=== PATIENT | female | born 1965 | race Caucasian/White ===

== ENCOUNTER 2016-12-13 11:03 | Inpatient (IN) | payer BC, OTHER ==
[~2016-12-13] VITALS: Ht 177.8 cm; Wt 91.4 kg
--- NOTE | 2016-12-13 12:28 | DIAGNOSTIC IMAGING REPORT ---
MAXILLOFACIAL CT WITHOUT CONTRAST CLINICAL HISTORY: Fell, trauma to face COMPARISON STUDY: None. TECHNIQUE: A maxillofacial CT was performed without IV contrast. Coronal and sagittal reformats were viewed. FINDINGS: No acute facial fracture is identified. Alignment of the temporomandibular joints is anatomic. Orbits are unremarkable. Globes are intact. Mastoid air cells are clear. Cervical spine and head CT's will be reported separately. There is moderate rightward deviation of the nasal septum. This is chronic. IMPRESSION: No acute facial fracture. Electronically signed by: Dg Tapia M.D. 12/13/2016 12:26 PM Dictated Date/Time: 12/13/2016 12:21 PM
--- NOTE | 2016-12-13 12:28 | DIAGNOSTIC IMAGING REPORT ---
HEAD CT NONCONTRAST CT DOSE: 638.56 mGycm HISTORY: Fell, trauma to face TECHNIQUE: Multiaxial CT images of the head were performed without the use of intravenous contrast. Automated exposure control was utilized for this study. Comparison: None. Findings: The paranasal sinuses and mastoid air cells are clear. The calvarium and skull base are intact. The ventricles and sulci are within normal limits. There is no mass, hematoma, midline shift. Small wedge-shaped hypodense focus within the left frontal lobe. This is consistent with a subacute to chronic infarct. Impression: No acute intracranial abnormality. Small subacute to chronic infarct within the left frontal lobe. Electronically signed by: Jayesh Erickson M.D. 12/13/2016 12:26 PM Dictated Date/Time: 12/13/2016 12:13 PM
--- NOTE | 2016-12-13 12:32 | DIAGNOSTIC IMAGING REPORT ---
CERVICAL SPINE CT CT DOSE: 490.45 mGycm HISTORY: Neck pain. Fell, trauma to face TECHNIQUE: Multiaxial CT images of the cervical spine were performed and reformatted in the sagittal and coronal plane without the use of contrast. COMPARISON: None. FINDINGS: No fractures. Prevertebral soft tissues and the C1-C2 interval are intact. No pneumothorax. Mild levoscoliosis. Moderate degenerative disease at C5-C6 and C6-C7. 1 mm of anterolisthesis of C4 and C5 which is likely due to long-standing degenerative change. IMPRESSION: No fractures within the cervical spine. Electronically signed by: Jayesh Erickson M.D. 12/13/2016 12:30 PM Dictated Date/Time: 12/13/2016 12:27 PM
[2016-12-13 14:08] LABS: PROTHROMBIN TIME (PATIENT) 10.4 SECONDS (9.0-12.0)
[2016-12-13] MEDS ORDERED: GADAVIST IV PRN (15:30)
--- NOTE | 2016-12-13 15:33 | DIAGNOSTIC IMAGING REPORT ---
MRI OF THE BRAIN COMBO CLINICAL HISTORY: Headache. Abnormal CT scan. COMPARISON STUDY: CT of the brain dated 12/13/2016. MRI of the brain dated 02/25/2007. TECHNIQUE: MRI of the brain was performed utilizing various T1 and T2-weighted sequences in the axial, sagittal, and coronal planes. Contrast-enhanced sequences were acquired following the administration of 9 cc of Gadavist. FINDINGS: Brain parenchyma: There is a small focus of left frontal encephalomalacia consistent with remote infarct. There is no hemorrhage or mass effect. There is no restricted diffusion to suggest acute ischemia. No enhancing mass lesion is identified on the postcontrast images. Brothers-white matter differentiation is preserved. No extra-axial fluid collection is seen. The cerebellar tonsils are normal in configuration. Ventricles, sulci, and cisterns: Normal in configuration. Pituitary and sella: Unremarkable. Intracranial vasculature: Normal flow voids are maintained at the skull base. Orbits: The bony orbits are grossly intact. Orbital contents are normal in appearance. Sinuses and mastoids: Clear. Calvarium: Unremarkable. Cervical cord: Partially visualized cervical spinal cord is normal in morphology and signal intensity. IMPRESSION: 1. There is no hemorrhage, enhancing mass, or evidence of acute ischemia. 2. A small focus of encephalomalacia is again seen in the left frontal lobe. This corresponds to the CT abnormality and likely represents a remote infarct. A precautionary 3 month follow-up MRI is recommended for reassessment. Electronically signed by: Oswald Mccormick M.D. 12/13/2016 3:31 PM Dictated Date/Time: 12/13/2016 3:25 PM
[2016-12-13 16:41] LABS: BASO % 0.6 %; BASO ABS # 0.07 K/uL (0-0.2); COMPLETE YES; EOS % 1.6 %; HEMATOCRIT 47.6 % (37-47); IG% 0.3 %; LYMPH % 27.3 %; LYMPH ABS # 3.07 K/uL (1.2-3.4); MEAN CELL VOLUME 92.2 fL (80-100); MEAN CORPUSCULAR HEMOGLOBIN 31.8 pg (25-34); MEAN CORPUSCULAR HGB CONC 34.5 g/dl (32-36); MEAN PLATELET VOLUME 10.8 fL (7.4-10.4); MONO % 6.6 %; NEUT % 63.6 %; PLATELET COUNT 240 K/uL (130-400); RED BLOOD COUNT 5.16 M/uL (4.2-5.4); WHITE BLOOD COUNT 11.24 K/uL (4.8-10.8)
[2016-12-13 16:49] LABS: BUN/CREATININE RATIO 11.7 (10-20); CALCIUM 9.7 mg/dl (8.5-10.1); CREATININE 0.82 mg/dl (0.60-1.20)
[2016-12-13 16:51] LABS: POTASSIUM 3.6 mmol/L (3.5-5.1)
[2016-12-13 16:52] LABS: ALB/GLOB RATIO 1.1 (0.9-2)
[2016-12-13] MEDS ORDERED: ONDANSETRON INJ 2 MG/ML 2 ML VIAL IV PRN (17:30)
[2016-12-13] MEDS ORDERED: MAGNESIUM HYDROXIDE SUSP 30 ML UDC PO PRN (17:30)
[2016-12-13] MEDS ORDERED: ALUMINUM/MAGNESIUM/SIMETH (MAALOX MAX) 30 ML UDC PO PRN (17:30)
[2016-12-13] MEDS ORDERED: POLYETHYLENE (MIRALAX) 17 GM PACK PO PRN (17:30)
[2016-12-13] MEDS ORDERED: PHARMACIST DISCHARGE MED REC CONSULT PRN (17:30)
--- NOTE | 2016-12-13 17:37 | History and Physical ---
History & Physical Date & Time of Service: Dec 13, 2016 at 17:35 Chief Complaint: Fall, Neck Pain, Black Eye Primary Care Physician: No Doctor, Assigned History of Present Illness Source: patient Ms. 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 Patient reporting social stressors and has been smoking cigarettes more recently. She states last night she was outside smoking when she went to dispose of the cigarette she leaned forward, felt "fuzzy", and fell to her knees. She continued to fall forward on the cement and obtained an abrasion to the right eye. Patient denies LOC but states that she laid on the ground for a few seconds because she could not lift her head up. She states this happened in the past due to vertigo from her cough located migraines. She describes these episodes as the inability to move in generalized weakness. This episode only lasted a few seconds and she was able to get up. Patient denies any focal neurological deficits. She reports that she chronically has difficulty finding her words however denies slurred speech or worsening of the symptoms. Only current complaint is of right facial pain secondary to trauma with associated intermittent numbness and tingling of the right arm. In the ED, maxillofacial CT and cervical spine CT without evidence of fracture. Head CT shows small subacute versus chronic infarct of the left frontal lobe with MRI confirming a remote infarct. Patient will be admitted to telemetry under observation. Family History Cerebral Aneurysm MOTHER Social History Smoking Status: Current Every Day Smoker (intermittent) Smokeless Tobacco Use: No Alcohol Use: none Drug Use: none Immunizations History of Tetanus Vaccine?: Yes History of Pneumococcal: No History of Hepatitis B Vaccine: No Multi-Drug Resistant Organisms History of MDRO: No Allergies Coded Allergies: No Known Allergies (Verified , 12/13/16) Home Medications No Active Prescriptions or Reported Meds Review of Systems REVIEW OF SYSTEMS: General/Constitutional: Denies fever/chills, fatigue, weakness, weight gain/loss ENT: Facial tenderness of R eye; Denies visual changes, nasal drainage, hearing loss, sore throat, trouble swallowing Cardiovascular: Denies chest pain, palpitations, edema Respiratory: Denies cough, sputum, SOB, wheezing, orthopnea GI: Denies nausea, vomiting, abdominal pain, constipation, diarrhea, melena/ hematochezia : Denies dysuria, frequency, hematuria Musculoskeletal: Denies joint/muscle aches, weakness, swelling Neurologic: + intermittent numbness/tingling R arm; Denies dizziness/ lightheadedness, weakness Psychiatric: Deferred Endocrine: Deferred Hematologic/Lymphatic: Denies bleeding/clotting abnormalities Skin: Denies rash, itch, new skin changes, easy bruising Allergy/Immunologic: Deferred Physical Exam Vital Signs Date Time Temp Pulse Resp B/P Pulse Ox O2 Delivery O2 Flow Rate FiO2 12/13/16 16:34 74 18 115/85 99 Room Air 12/13/16 15:28 64 16 115/64 97 12/13/16 13:42 75 18 118/76 98 Room Air 12/13/16 12:33 69 18 113/72 98 Room Air 12/13/16 11:08 36.4 79 20 132/87 94 Room Air PHYSICAL EXAM:: General Appearance: WDWN in NAD who is A&O x 3; mildly anxious HEENT: Head is normocephalic; ecchymosis and edema of R eye with tenderness; EOMI; PERRLA; Hearing grossly intact; Mucous membranes moist; Pharynx negative for exudate/lesions Neck: Supple; Trachea midline; Neg JVD; Neg lymphadenopathy Heart: RRR with no M/G/R Lungs: CTA in all lung saab bilaterally; Respirations unlabored; Neg accessory muscle use Abdomen: Soft, non-tender, non-distended; Positive BS x 4 quadrants; Neg organomegaly Extremities: Capillary refill < 2 seconds; Neg cyanosis or edema Neurological: Speech clear; Gross motor/sensory function intact; Neg focal neurologic deficits; strength equal bilat 5/5; facial movements symmetrical Psychiatric: Appropriate mood/affect Skin: Normal Color; Warm/Dry; Neg rashes, ecchymosis, lacerations/ulcerations Diagnostics Laboratory Results Results Past 24 Hours Test 12/13/16 13:40 Range/Units White Blood Count 11.24 4.8-10.8 K/uL Red Blood Count 5.16 4.2-5.4 M/uL Hemoglobin 16.4 12.0-16.0 g/dL Hematocrit 47.6 37-47 % Mean Corpuscular Volume 92.2 80-100 fL Mean Corpuscular Hemoglobin 31.8 25-34 pg Mean Corpuscular Hemoglobin Concent 34.5 32-36 g/dl Platelet Count 240 130-400 K/uL Mean Platelet Volume 10.8 7.4-10.4 fL Neutrophils (%) (Auto) 63.6 % Lymphocytes (%) (Auto) 27.3 % Monocytes (%) (Auto) 6.6 % Eosinophils (%) (Auto) 1.6 % Basophils (%) (Auto) 0.6 % Neutrophils # (Auto) 7.15 1.4-6.5 K/uL Lymphocytes # (Auto) 3.07 1.2-3.4 K/uL Monocytes # (Auto) 0.74 0.11-0.59 K/uL Eosinophils # (Auto) 0.18 0-0.5 K/uL Basophils # (Auto) 0.07 0-0.2 K/uL RDW Standard Deviation 42.4 36.4-46.3 fL RDW Coefficient of Variation 12.6 11.5-14.5 % Immature Granulocyte % (Auto) 0.3 % Immature Granulocyte # (Auto) 0.03 0.00-0.02 K/uL Prothrombin Time 10.4 9.0-12.0 SECONDS Prothromb Time International Ratio 1.0 0.9-1.1 Activated Partial Thromboplast Time 25.5 21.0-31.0 SECONDS Partial Thromboplastin Ratio 1.0 Sodium Level 141 136-145 mmol/L Potassium Level 3.6 3.5-5.1 mmol/L Chloride Level 106 98-107 mmol/L Carbon Dioxide Level 27 21-32 mmol/L Anion Gap 8.0 3-11 mmol/L Blood Urea Nitrogen 10 7-18 mg/dl Creatinine 0.82 0.60-1.20 mg/dl Est Creatinine Clear Calc Drug Dose 93.2 ml/min Estimated GFR () 96.0 Estimated GFR (Non- 82.9 BUN/Creatinine Ratio 11.7 10-20 Random Glucose 95 70-99 mg/dl Calcium Level 9.7 8.5-10.1 mg/dl Total Bilirubin 0.6 0.2-1 mg/dl Aspartate Amino Transf (AST/SGOT) 22 15-37 U/L Alanine Aminotransferase (ALT/SGPT) 42 12-78 U/L Alkaline Phosphatase 90 45-117 U/L Total Protein 8.5 6.4-8.2 gm/dl Albumin 4.5 3.4-5.0 gm/dl Globulin 4.0 2.5-4.0 gm/dl Albumin/Globulin Ratio 1.1 0.9-2 [address] HEAD [address] NONCONTRAST CT DOSE: 638.56 mGycm HISTORY: Fell, trauma to face TECHNIQUE: Multiaxial CT images of the head were performed without the use of intravenous contrast. Automated exposure control was utilized for this study. Comparison: None. Findings: The paranasal sinuses and mastoid air cells are clear. The calvarium and skull base are intact. The ventricles and sulci are within normal limits. There is no mass, hematoma, midline shift. Small wedge-shaped hypodense focus within the left frontal lobe. This is consistent with a subacute to chronic infarct. Impression: No acute intracranial abnormality. Small subacute to chronic infarct within the left frontal lobe. 2. BRAIN MRI CLINICAL HISTORY: Headache. Abnormal CT scan. COMPARISON STUDY: CT of the brain dated 12/13/2016. MRI of the brain dated 02/25/2007. TECHNIQUE: MRI of the brain was performed utilizing various T1 and T2-weighted sequences in the axial, sagittal, and coronal planes. Contrast-enhanced sequences were acquired following the administration of 9 cc of Gadavist. FINDINGS: Brain parenchyma: There is a small focus of left frontal encephalomalacia consistent with remote infarct. There is no hemorrhage or mass effect. There is no restricted diffusion to suggest acute ischemia. No enhancing mass lesion is identified on the postcontrast images. Brothers-white matter differentiation is preserved. No extra-axial fluid collection is seen. The cerebellar tonsils are normal in configuration. Ventricles, sulci, and cisterns: Normal in configuration. Pituitary and sella: Unremarkable. Intracranial vasculature: Normal flow voids are maintained at the skull base. Orbits: The bony orbits are grossly intact. Orbital contents are normal in appearance. Sinuses and mastoids: Clear. Calvarium: Unremarkable. Cervical cord: Partially visualized cervical spinal cord is normal in morphology and signal intensity. IMPRESSION: 1. There is no hemorrhage, enhancing mass, or evidence of acute ischemia. 2. A small focus of encephalomalacia is again seen in the left frontal lobe. This corresponds to the CT abnormality and likely represents a remote infarct. A precautionary 3 month follow-up MRI is recommended for reassessment. Impression Assessment and Plan Ms. 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 Head CT/MRI confirms subacute vs chronic CVA of L frontal lobe L Frontal Lobe CVA: Chronic - ASA 81 mg daily - Discussed statin therapy - explained preventative measures - patient reports last lipid panel was normal with like to forego medication therapy at this time -- Does report history of hyperlipidemia that she has been managing with diet and exercise - NIH and neuro checks - Lipid panel in AM - Serial cardiac enzymes - Echo - patient reports "a hole in the heart" as a child - cannot give further details -- Do not have high suspicion of embolic source - Consult neurology - appreciate recommendations Mechanical Fall vs Syncope: - Appears largely mechanical but states she did feel "fuzzy" and had resultant difficulty lifting head off the ground - Pain management - Tylenol PRN, Jones PRN, and Morphine IV PRN Complicated Migraines with Aura: STABLE DVT Prophylaxis: YUE/SCDs Code Status: FULL RESUSCITATION Disposition: Resident of [place] ATTENDING ATTESTATION I have seen and examined patient and agree with assessment and plan as stated above by WINTER Perdue. Patient is a 51 y.o.F with no significant PMHx who presented with a mechanical fall. Patient stated after fall she had heaviness head with difficulty lifting her head. On admission MRI she was found to have findings consistent with remote h/o cerebral infarct. Patient admitted to hospitalist service for further workup. Vitals Reviewed GEN: NAD HEENT: right per orbital ecchymosis CVS- RRR RESP- CTA ABD- NTND Neurologic: Cranial nerves 2-12 grossly intact 5/5 strength in all extremities, no sensory deficits Labs/Imaging- Reviewed Mechanical Fall ? TIA/CVA -Place on stroke protocol/start ASA/patient refuses statin however will check lipid profile in am/ consult neurology/ of neurology aware Level of Care Telemetry Resuscitation Status FULL RESUSCITATION VTE Prophylaxis VTE Risk Assessment Done? Y/N: Yes Risk Level: Moderate Given or contraindicated: T.E.D. Stockings, SCD's Social Service Consult None Apply
[2016-12-13] MEDS ORDERED: MoRPHine SULFATE 2 MG/ML CARP IV PRN (17:45)
[2016-12-13] MEDS ORDERED: IV FLUIDS COMPLETED PRN (18:15)
[2016-12-13] MEDS ORDERED: HYDROCODONE/ACETAMOPHEN 5/325MG TAB ONE (18:19)
--- NOTE | 2016-12-13 19:08 | EMERGENCY ROOM VISIT NOTE ---
History First contact with patient: 11:10 Chief Complaint: FALL Stated Complaint: FALL, NECK PAIN, BLACK EYE History of Present Illness The patient is a 51 year old female who presents to the Emergency Room via private vehicle with complaints of "fall, neck pain, black eye". The patient states that yesterday while attempting to extinguish a cigarette all outside she bent down to extinguish a cigarette and lost her balance and fell forward. She states that she felt as if she had an episode of vertigo, and dizziness. She struck her right orbital region and may have lost consciousness. There was a period of haziness postevent. She is here today concerned because her nose, and right eye region are very painful. The neck is also increasingly painful. Her tetanus is up-to-date. She rates the current pain as a 4/10. Review of Systems A complete 10-point Review of Systems was discussed with the patient, with pertinent positives and negatives listed in the History of Present Illness. All remaining Review of Systems questions can be considered negative unless otherwise specified. Past Medical/Surgical History Medical Problems: (1) Cerebrovascular accident (CVA) Family History Cerebral Aneurysm MOTHER Heart disease, high blood pressure, cancer Social History Smoking Status: Current Every Day Smoker (intermittent) Smokeless Tobacco Use: No Drug Use: none Occupation Status: employed Current/Historical Medications No Active Prescriptions or Reported Meds Allergies Coded Allergies: No Known Allergies (Verified , 12/13/16) Physical Exam Vital Signs Date Time Temp Pulse Resp B/P Pulse Ox O2 Delivery O2 Flow Rate FiO2 12/13/16 18:11 66 18 117/77 99 Room Air 12/13/16 16:34 74 18 115/85 99 Room Air 12/13/16 15:28 64 16 115/64 97 12/13/16 13:42 75 18 118/76 98 Room Air 12/13/16 12:33 69 18 113/72 98 Room Air 12/13/16 11:08 36.4 79 20 132/87 94 Room Air Pain Rating (0-10): 3.0 Physical Exam VITAL SIGNS - Vital signs and nursing notes were reviewed. Patient is afebrile , normotensive, non-tachycardic and saturating well on room air. GENERAL -51-year-old female appearing her stated age who is in no acute distress. Communicates well with provider and answers questions appropriately. SKIN - Without rashes. There is abrasion over the right orbital region. There is ecchymosis formation on the right orbital region. No active bleeding. HEAD - Normocephalic, Atraumatic. No Chaney's Sign or Raccoon's Eyes. No depressed skull fractures palpable. EYES - PERRL with EOMI bilaterally. Without subconjunctival hemorrhage. Palpebral conjunctiva pink and moist with no injection. EARS - No deformities of external structures noted on gross examination bilaterally. No hemotympanum present. No tympanic perforation noted. Handle of malleus, umbo, cone of light, pars tensa/flaccid all easily visualized. NOSE - Midline and without cyanosis. No epistaxis or clear watery discharge noted. Septum midline without deviation. No septal hematoma noted. There is tenderness to palpation overlying the anterior nose. MOUTH/OROPHARYNX - Without perioral cyanosis. Tongue midline with equal elevation of palate bilaterally. No blood noted in the oropharynx. No tonsillar hypertrophy, erythema, or exudates noted. No dental fractures noted. NECK -no tenderness to palpation over the cervical spinous processes. Moderate cervical paraspinal muscle tenderness noted. LUNGS - Chest wall symmetric without accessory muscle use, intercostals retractions, or central cyanosis. No flail chest or depressed fractures noted. No paradoxical chest wall movements noted. CTA B/L. No wheezes, rales, or rhonchi appreciated. CARDIAC - RRR with S1/S2. No murmur, rubs, or gallops appreciated. EXTREMITIES - No gross deformities noted of the extremities. No tenderness to palpation of the extremities. +5/5 strength noted in UE/LE bilaterally. NEUROLOGIC - Cranial nerves II through XII grossly intact. Sensory intact to light touch throughout. Patellar reflexes +2/4. PSYCH - Pt is very pleasant and interacts well with examiner. Medical Decision & Procedures ER Provider Diagnostic Interpretation: CERVICAL SPINE CT CT DOSE: 490.45 mGycm HISTORY: Neck pain. Fell, trauma to face TECHNIQUE: Multiaxial CT images of the cervical spine were performed and reformatted in the sagittal and coronal plane without the use of contrast. COMPARISON: None. FINDINGS: No fractures. Prevertebral soft tissues and the C1-C2 interval are intact. No pneumothorax. Mild levoscoliosis. Moderate degenerative disease at C5-C6 and C6-C7. 1 mm of anterolisthesis of C4 and C5 which is likely due to long-standing degenerative change. IMPRESSION: No fractures within the cervical spine. Electronically signed by: Jayesh Erickson M.D. 12/13/2016 12:30 PM Dictated Date/Time: 12/13/2016 12:[address] CT DOSE: 638.56 mGycm HISTORY: Fell, trauma to face TECHNIQUE: Multiaxial CT images of the head were performed without the use of intravenous contrast. Automated exposure control was utilized for this study. Comparison: None. Findings: The paranasal sinuses and mastoid air cells are clear. The calvarium and skull base are intact. The ventricles and sulci are within normal limits. There is no mass, hematoma, midline shift. Small wedge-shaped hypodense focus within the left frontal lobe. This is consistent with a subacute to chronic infarct. Impression: No acute intracranial abnormality. Small subacute to chronic infarct within the left frontal lobe. Electronically signed by: Jayesh Erickson M.D. 12/13/2016 12:26 PM Dictated Date/Time: 12/13/2016 12:[address] WITHOUT CONTRAST CLINICAL HISTORY: Fell, trauma to face COMPARISON STUDY: None. TECHNIQUE: A maxillofacial CT was performed without IV contrast. Coronal and sagittal reformats were viewed. FINDINGS: No acute facial fracture is identified. Alignment of the temporomandibular joints is anatomic. Orbits are unremarkable. Globes are intact. Mastoid air cells are clear. Cervical spine and head CT's will be reported separately. There is moderate rightward deviation of the nasal septum. This is chronic. IMPRESSION: No acute facial fracture. Electronically signed by: Dg Tapia M.D. 12/13/2016 12:26 PM Dictated Date/Time: 12/13/2016 12:21 PM MRI OF THE BRAIN COMBO CLINICAL HISTORY: Headache. Abnormal CT scan. COMPARISON STUDY: CT of the brain dated 12/13/2016. MRI of the brain dated 02/25/2007. TECHNIQUE: MRI of the brain was performed utilizing various T1 and T2-weighted sequences in the axial, sagittal, and coronal planes. Contrast-enhanced sequences were acquired following the administration of 9 cc of Gadavist. FINDINGS: Brain parenchyma: There is a small focus of left frontal encephalomalacia consistent with remote infarct. There is no hemorrhage or mass effect. There is no restricted diffusion to suggest acute ischemia. No enhancing mass lesion is identified on the postcontrast images. Brothers-white matter differentiation is preserved. No extra-axial fluid collection is seen. The cerebellar tonsils are normal in configuration. Ventricles, sulci, and cisterns: Normal in configuration. Pituitary and sella: Unremarkable. Intracranial vasculature: Normal flow voids are maintained at the skull base. Orbits: The bony orbits are grossly intact. Orbital contents are normal in appearance. Sinuses and mastoids: Clear. Calvarium: Unremarkable. Cervical cord: Partially visualized cervical spinal cord is normal in morphology and signal intensity. IMPRESSION: 1. There is no hemorrhage, enhancing mass, or evidence of acute ischemia. 2. A small focus of encephalomalacia is again seen in the left frontal lobe. This corresponds to the CT abnormality and likely represents a remote infarct. A precautionary 3 month follow-up MRI is recommended for reassessment. Electronically signed by: Oswald Mccormick M.D. 12/13/2016 3:31 PM Dictated Date/Time: 12/13/2016 3:25 PM Laboratory Results 12/13/16 13:40 Red Blood Count 5.16, Mean Corpuscular Volume 92.2, Mean Corpuscular Hemoglobin 31.8, Mean Corpuscular Hemoglobin Concent 34.5, Mean Platelet Volume 10.8, Neutrophils (%) (Auto) 63.6, Lymphocytes (%) (Auto) 27.3, Monocytes (%) (Auto) 6.6, Eosinophils (%) (Auto) 1.6, Basophils (%) (Auto) 0.6, Neutrophils # (Auto) 7.15, Lymphocytes # (Auto) 3.07, Monocytes # (Auto) 0.74, Eosinophils # (Auto) 0.18, Basophils # (Auto) 0.07 12/13/16 13:40 Test 12/13/16 13:40 White Blood Count 11.24 K/uL (4.8-10.8) Red Blood Count 5.16 M/uL (4.2-5.4) Hemoglobin 16.4 g/dL (12.0-16.0) Hematocrit 47.6 % (37-47) Mean Corpuscular Volume 92.2 fL (80-100) Mean Corpuscular Hemoglobin 31.8 pg (25-34) Mean Corpuscular Hemoglobin Concent 34.5 g/dl (32-36) Platelet Count 240 K/uL (130-400) Mean Platelet Volume 10.8 fL (7.4-10.4) Neutrophils (%) (Auto) 63.6 % Lymphocytes (%) (Auto) 27.3 % Monocytes (%) (Auto) 6.6 % Eosinophils (%) (Auto) 1.6 % Basophils (%) (Auto) 0.6 % Neutrophils # (Auto) 7.15 K/uL (1.4-6.5) Lymphocytes # (Auto) 3.07 K/uL (1.2-3.4) Monocytes # (Auto) 0.74 K/uL (0.11-0.59) Eosinophils # (Auto) 0.18 K/uL (0-0.5) Basophils # (Auto) 0.07 K/uL (0-0.2) RDW Standard Deviation 42.4 fL (36.4-46.3) RDW Coefficient of Variation 12.6 % (11.5-14.5) Immature Granulocyte % (Auto) 0.3 % Immature Granulocyte # (Auto) 0.03 K/uL (0.00-0.02) Prothrombin Time 10.4 SECONDS (9.0-12.0) Prothromb Time International Ratio 1.0 (0.9-1.1) Activated Partial Thromboplast Time 25.5 SECONDS (21.0-31.0) Partial Thromboplastin Ratio 1.0 Anion Gap 8.0 mmol/L (3-11) Est Creatinine Clear Calc Drug Dose 93.2 ml/min Estimated GFR () 96.0 Estimated GFR (Non- 82.9 BUN/Creatinine Ratio 11.7 (10-20) Calcium Level 9.7 mg/dl (8.5-10.1) Total Bilirubin 0.6 mg/dl (0.2-1) Aspartate Amino Transf (AST/SGOT) 22 U/L (15-37) Alanine Aminotransferase (ALT/SGPT) 42 U/L (12-78) Alkaline Phosphatase 90 U/L (45-117) Troponin I < 0.015 ng/ml (0-0.045) Total Protein 8.5 gm/dl (6.4-8.2) Albumin 4.5 gm/dl (3.4-5.0) Globulin 4.0 gm/dl (2.5-4.0) Albumin/Globulin Ratio 1.1 (0.9-2) Medications Administered Medications (Trade) Dose Ordered Sig/Irene Route Start Time Stop Time Status Last Admin Dose Admin Acetaminophen/ Hydrocodone Bitart (Alpha 5/325 Tab) 1 tab STK-MED ONCE .ROUTE 12/13/16 18:19 12/13/16 18:20 DC 12/13/16 18:16 1 TAB Medical Decision Patient was seen and evaluated as above. After obtaining a thorough history and physical examination, CT of the head, cervical spine and face were obtained secondary to subjective and objective exam findings. Results as above. There is concern for potential subacute/chronic infarct of the left frontal lobe. I did consult with my attending and subsequently the on-call neurologist, Dr. Shaw. The call was placed at 1:28 PM. He recommended an MRI brain with and without contrast. IV access was initiated, i-STAT was obtained and an MRI was also obtained. This was after providing patient consent. MRI confirms CT findings. Case was discussed with Dr. Hurtado, my attending who shared concern over this age indeterminate stroke, of which the patient was unaware of. I'm concerned that due to the patient's symptoms that she had yesterday this may be recent therefore do believe that inpatient admission is warranted for further evaluation and management. She will receive a neurologic consult here in the hospital. Patient was in agreement with this. Basic lab work was obtained, without any significant abnormality. I did discuss the case again with Dr. Shaw, who agreed to potential consultation of the patient tomorrow morning. Please refer to further documentation regarding the patient's stay. In the evaluation and treatment of this patient, the following differential diagnoses were considered: Concussion, Contrecoup Injury, Brain Tumor, Depression, Encephalitis, Hypothyroidism, Meningitis, CVA, TIA, Migraine, Cluster Headache, facial fracture, Intracranial Abnormality, Intracranial Hemorrhage, Subdural Hematoma, Subarachnoid Hemorrhage, Hydrocephalus. Impression Primary Impression: Fall Additional Impressions: Cerebrovascular accident (CVA) Contusion of multiple sites Departure Information Dispostion Admitted as an inpatient Condition FAIR Prescriptions No Active Prescriptions or Reported Meds Referrals No Doctor, Assigned (PCP) Patient Instructions My [facility] Problem Qualifiers
[2016-12-13 19:51] VITALS: BP 126/85; PULSE 75; TEMP 36.8; O2SAT 94; Ht 177.8 cm; Wt 91.4 kg
[2016-12-13] MEDS: ACETAMINOPHEN 325 MG TAB PO PRN (20:26)
[2016-12-13] MEDS: HYDROCODONE/ACETAMOPHEN 5/325MG TAB PO PRN (23:29)
[2016-12-14] VITALS (9 sets, daily range): BP systolic 93–117; BP diastolic 59–79; PULSE 60–72; TEMP 36.5–37.3; O2SAT 93–97
[2016-12-14] MEDS: HYDROCODONE/ACETAMOPHEN 5/325MG TAB PO PRN ×4 (05:58→21:17)
[2016-12-14 06:23] LABS: ESTIMATED AVERAGE GLUCOSE 105 mg/dl; HA1C FLAG Normal (Normal)
[2016-12-14 06:56] LABS: BASO % 0.6 %; BASO ABS # 0.05 K/uL (0-0.2); COMPLETE YES; EOS % 6.3 %; HEMATOCRIT 40.5 % (37-47); IG% 0.3 %; LYMPH % 29.8 %; LYMPH ABS # 2.56 K/uL (1.2-3.4); MEAN CORPUSCULAR HEMOGLOBIN 32.3 pg (25-34); MEAN CORPUSCULAR HGB CONC 35.1 g/dl (32-36); MEAN PLATELET VOLUME 9.9 fL (7.4-10.4); MONO % 7.9 %; NEUT % 55.1 %; PLATELET COUNT 199 K/uL (130-400); WHITE BLOOD COUNT 8.58 K/uL (4.8-10.8)
[2016-12-14 07:13] LABS: BUN/CREATININE RATIO 16.6 (10-20); CALCIUM 8.9 mg/dl (8.5-10.1); CREATININE 0.79 mg/dl (0.60-1.20); POTASSIUM 3.9 mmol/L (3.5-5.1)
[2016-12-14] MEDS: ASPIRIN 81 MG ECTAB PO SCH (07:59)
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
--- NOTE | 2016-12-14 09:49 | Neurology Consultation ---
Neurology Consultation Date of Consultation: Dec 14, 2016. Attending Physician: Shania Simental MD Primary Care Physician: No Doctor, Assigned Reason for Consultation: Near syncope, old stroke found on MRI History of Present Illness Source: patient, hospital records The patient is a 51-year-old female who was evaluated in the emergency department yesterday after falling face forward while bending over to put out a cigarette the previous night. She indicates that she does not typically smoke. She was alone at the time of the incident although was apparently found lying on the ground with evidence of superficial abrasions around the right orbit and face. The patient recalls that her vision became dark although denies any other warning signs. She was not incontinent and did not bite her tongue. She did sustain some minor bruising of the left knee as well. The patient has never had a similar episode in the past. No history of syncope or seizure disorder. Past medical history notable for episodic migraine and vertigo, but nothing significant recently. She does admit to some chronic social stressors related to her marriage and living abroad for 18 years, in [facility]. 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 I was contacted by a physician's physician assistant who is working in the emergency department yesterday. A CT of the head has suggested a possible chronic to subacute left frontal lobe infarct. A follow-up MRI was recommended and corroborated this finding. I reviewed the images and radiologist's interpretation of these tests. There is a small area of encephalomalacia within the left frontal lobe. The area is wedge-shaped and extends to the cortex and appears to be most consistent with a chronic infarct. No abnormal post contrast enhancement. No evidence of an underlying vascular lesion or neoplasm. Upon further questioning, the patient denies a history of stroke or strokelike episodes. She also denies a history of significant head trauma. A brain MRI was completed at [facility] in 2006. There was no evidence of the recently identified left frontal lobe stroke at that time. Past Medical/Surgical History Medical Problems: (1) Contusion of multiple sites Status: Acute (2) Fall Status: Acute Family History The patient indicates that her mother has a history of blood clots. She denies a family history of epilepsy. Social History Smokeless Tobacco Use: No Alcohol Use: none Drug Use: none Occupation Status: employed Allergies Coded Allergies: No Known Allergies (Verified , 12/13/16) Current Inpatient Medications Current Inpatient Medications Medications (Trade) Dose Ordered Sig/Irene Route Start Time Stop Time Status Last Admin Dose Admin Gadobutrol (Gadavist) 9 mmol UD PRN IV 12/13/16 15:30 12/17/16 15:29 Aspirin (Ecotrin Tab) 81 mg QAM PO 12/14/16 09:00 01/13/17 08:59 12/14/16 07:59 81 MG Miscellaneous Information (Pharmacist Discharge Med Rec Consult) 1 ea UD PRN N/A 12/13/16 17:30 01/12/17 17:29 Acetaminophen (Tylenol Tab) 650 mg Q4H PRN PO 12/13/16 17:30 01/12/17 17:29 12/13/16 20:26 650 MG Al Hydrox/Mg Hydrox/Simethicone (Maalox Max Susp) 15 ml Q4H PRN PO 12/13/16 17:30 01/12/17 17:29 Magnesium Hydroxide (Milk Of Magnesia Susp) 30 ml Q12H PRN PO 12/13/16 17:30 01/12/17 17:29 Ondansetron HCl (Zofran Inj) 4 mg Q6H PRN IV 12/13/16 17:30 01/12/17 17:29 Polyethylene (Miralax Powder Packet) 17 gm DAILY PRN PO 12/13/16 17:30 01/12/17 17:29 Morphine Sulfate (MoRPHine SULFATE INJ) 1 mg Q3H PRN IV 12/13/16 17:45 12/27/16 17:44 Acetaminophen/ Hydrocodone Bitart ([place] 5/325 Tab) 1 tab Q4H PRN PO 12/13/16 17:45 12/27/16 17:44 12/14/16 05:58 1 TAB Miscellaneous (Iv Fluids Completed) 1 ea PRN PRN N/A 12/13/16 18:15 12/13/17 18:14 Review of Systems The patient denies headache, fever, chills, vision changes, hearing changes, chest pain, palpitations, shortness of breath, coughing, wheezing, abdominal pain, diarrhea, nausea, dysuria, incontinence, muscle pain, joint pain, rash, skin lesion or sores, swollen glands, abnormal bruising or bleeding, or significant depression or anxiety A full 10 point review of systems was obtained from this patient and is as described in the history of present illness and otherwise listed above Physical Exam Vital Signs (Past 24 Hrs): Date Time Temp Pulse Resp B/P Pulse Ox O2 Delivery O2 Flow Rate FiO2 12/14/16 08:04 36.7 67 16 106/71 94 12/14/16 04:00 Room Air 12/14/16 03:39 36.5 60 16 110/75 94 Room Air 12/14/16 00:11 37.3 66 18 116/79 95 Room Air 12/14/16 00:01 Room Air 12/13/16 20:00 Room Air 12/13/16 19:51 36.8 75 18 126/85 94 Room Air 12/13/16 18:11 66 18 117/77 99 Room Air 12/13/16 16:34 74 18 115/85 99 Room Air 12/13/16 15:28 64 16 115/64 97 12/13/16 13:42 75 18 118/76 98 Room Air 12/13/16 12:33 69 18 113/72 98 Room Air 12/13/16 11:08 36.4 79 20 132/87 94 Room Air The patient is a well-developed, well-nourished, middle-aged female. There are some abrasions around the right orbit and face with some associated ecchymosis. She is alert and oriented to person place and time. Attention and concentration normal. Recent and remote memory normal. She exhibits a normal spontaneous speech pattern, is able to identify objects, repeat phrases, and repeat text without difficulty. Gen. fund of knowledge and vocabulary normal. Visual saab full to confrontation. Visual acuity normal. Pupils equal round reactive to light and accommodation. Eye movements normal. There is no nystagmus. Facial sensation normal. Facial strength normal. No facial droop. Hearing intact to finger rub bilaterally. Palate elevates to midline. Tongue protrudes to midline. Shoulder shrug strength intact bilaterally. Sensation intact to vibration, temperature, light touch, and proprioception for all 4 limbs. Deep tendon reflexes are 2+ for the upper and lower extremities bilaterally. Plantar responses downgoing bilaterally. There is no dysmetria with finger to nose or heel to pompa bilaterally. No difficulty with rapid alternating movements. Ophthalmoscopic examination reveals normal appearing optic nerves and posterior elements. No papilledema. No hemorrhages. Carotid pulses normal bilaterally, no bruits to auscultation. Musculoskeletal examination reveals normal strength for the arms and legs bilaterally, proximally and distally. There is normal muscle tone. No atrophy. No abnormal movements observed. Gait and station normal. Laboratory Results Past 24 Hours: 12/14/16 06:36 Red Blood Count 4.40, Mean Corpuscular Volume 92.0, Mean Corpuscular Hemoglobin 32.3, Mean Corpuscular Hemoglobin Concent 35.1, Mean Platelet Volume 9.9, Neutrophils (%) (Auto) 55.1, Lymphocytes (%) (Auto) 29.8, Monocytes (%) (Auto) 7.9, Eosinophils (%) (Auto) 6.3, Basophils (%) (Auto) 0.6, Neutrophils # (Auto) 4.72, Lymphocytes # (Auto) 2.56, Monocytes # (Auto) 0.68, Eosinophils # (Auto) 0.54, Basophils # (Auto) 0.05 12/14/16 06:36 Test 12/13/16 13:40 12/14/16 06:36 Prothrombin Time 10.4 SECONDS (9.0-12.0) Prothromb Time International Ratio 1.0 (0.9-1.1) Activated Partial Thromboplast Time 25.5 SECONDS (21.0-31.0) Partial Thromboplastin Ratio 1.0 Estimated Average Glucose 105 mg/dl Hemoglobin A1c 5.3 % (4.5-5.6) Total Bilirubin 0.6 mg/dl (0.2-1) Aspartate Amino Transf (AST/SGOT) 22 U/L (15-37) Alanine Aminotransferase (ALT/SGPT) 42 U/L (12-78) Alkaline Phosphatase 90 U/L (45-117) Total Protein 8.5 gm/dl (6.4-8.2) Albumin 4.5 gm/dl (3.4-5.0) Globulin 4.0 gm/dl (2.5-4.0) Albumin/Globulin Ratio 1.1 (0.9-2) White Blood Count 8.58 K/uL (4.8-10.8) Red Blood Count 4.40 M/uL (4.2-5.4) Hemoglobin 14.2 g/dL (12.0-16.0) Hematocrit 40.5 % (37-47) Mean Corpuscular Volume 92.0 fL (80-100) Mean Corpuscular Hemoglobin 32.3 pg (25-34) Mean Corpuscular Hemoglobin Concent 35.1 g/dl (32-36) Platelet Count 199 K/uL (130-400) Mean Platelet Volume 9.9 fL (7.4-10.4) Neutrophils (%) (Auto) 55.1 % Lymphocytes (%) (Auto) 29.8 % Monocytes (%) (Auto) 7.9 % Eosinophils (%) (Auto) 6.3 % Basophils (%) (Auto) 0.6 % Neutrophils # (Auto) 4.72 K/uL (1.4-6.5) Lymphocytes # (Auto) 2.56 K/uL (1.2-3.4) Monocytes # (Auto) 0.68 K/uL (0.11-0.59) Eosinophils # (Auto) 0.54 K/uL (0-0.5) Basophils # (Auto) 0.05 K/uL (0-0.2) RDW Standard Deviation 42.6 fL (36.4-46.3) RDW Coefficient of Variation 12.7 % (11.5-14.5) Immature Granulocyte % (Auto) 0.3 % Immature Granulocyte # (Auto) 0.03 K/uL (0.00-0.02) Anion Gap 6.0 mmol/L (3-11) Est Creatinine Clear Calc Drug Dose 102.0 ml/min Estimated GFR () 100.5 Estimated GFR (Non- 86.7 BUN/Creatinine Ratio 16.6 (10-20) Calcium Level 8.9 mg/dl (8.5-10.1) Troponin I < 0.015 ng/ml (0-0.045) Triglycerides Level 114 mg/dl (0-150) Cholesterol Level 189 mg/dl (0-200) HDL Cholesterol 63 mg/dl LDL Cholesterol, Calculated 103 mg/dl VLDL Cholesterol, Calculated 23 mg/dl Cholesterol/HDL Ratio 3.0 Impression Suspected near syncopal episode during which time the patient fell forward sustaining some minor/superficial abrasions to the periorbital region and face. This episode was probably triggered by bending forward, towards the ground, to extinguish a recently smoked cigarette. She does not typically smokes cigarettes and was doing so to deal with some chronic stressors. There is no evidence to suggest a seizure disorder or epilepsy at this time. There is evidence of a chronic, cortical, left frontal lobe infarct that was discovered incidentally on CT of the head and corroborated with follow-up MRI. The patient was apparently not aware that she had sustained a stroke in the past. The stroke would have occurred sometime after her last brain MRI in 2006. It is not possible to provide a more specific date. The etiology of this stroke is currently undetermined. Possibilities could include occult cardioembolism or intracranial thrombosis. Thrombophilia or a hypercoagulable state should be considered as well. Plan Given this patient's relatively young age, I think a full stroke workup is indicated and should include an electrocardiogram, transthoracic echocardiogram with bubble study, and MR angiography of the head and neck. A carotid duplex would also be useful to complement the data obtained from MR angiography. A hypercoagulable panel should also be obtained. Aspirin 81 mg per day is appropriate for secondary stroke risk reduction in this individual unless if an indication is identified for anticoagulation. If the above tests are unremarkable, I would not really have any further specific recommendations. In that setting, her stroke may be considered cryptogenic although with some residual suspicion for a remote cardioembolic event. It does not appear as if this patient has any immediate need for rehabilitation services. Please contact me if I may be of further assistance.
--- NOTE | 2016-12-14 10:41 | ECHOCARDIOGRAM REPORT ---
*NOTICE TO RECEIVING REPUBLICAN AGENCY This information is strictly Confidential and protected under [place] law. [place] law prohibits you from making any further disclosure of this information unless further disclosure is expressly permitted by the written consent of the person to whom it pertains or is authorized by law. A general authorization for the release of medical or other information is not sufficient for this purpose. Hospital accepts no responsibility if the information is made available to any other person, INCLUDING THE PATIENT. Interpretation Summary * Name: KOURTNEY BAEZA Study Date: 12/14/2016 08:40 AM BP: 110/75 mmHg * Patient Location: [facility]\S\N284\S\2 HR: 60 * : 1965 (M/d/yyyy) Gender: Female Height: 67 in * Age: 51 yrs Ethnicity: CA Weight: 197 lb * Ordering Physician: Shania Perdue * Referring Physician: Self, Referred * Performed By: Yakov Tan RCS * * Reason For Study: Cerebral Ischema/Embolus * BSA: 2.0 m2 * -- Conclusions -- * 1. Normal LV size and wall thickness. * 2. Normal LV function. LVEF 60-65%. No regional wall motion abnormalities. * 3. Normal RV size and function. * 4. No significant valvular pathology. * 5. Right atrium is mild to moderately dilated. * 6. Interatrial septum is thickened and appears aneurysmal. * 7. Saline contrast study is technically limited but appears positive for right to left shunt. * 8. No prior studies for comparison. * 9. Consider GA to further evaluate interatrial septum. Procedure Details * A complete two-dimensional transthoracic echocardiogram was performed (2D, M-mode, Doppler and color flow Doppler). * A saline contrast injection was performed to assess for cardiac shunting. * The injection was performed through an intravenous line in the right arm. * A total of 20 cc of agitated saline was given. * The attending nurse who injected the saline contrast was Demetra Paige RN. Left Ventricle * The left ventricle is grossly normal size. * There is normal left ventricular wall thickness. * Ejection Fraction = 60-65%. * There are regional wall motion abnormalities as specified. Right Ventricle * The right ventricle is grossly normal size. * The right ventricular systolic function is normal as assessed by tricuspid annular plane systolic excursion (TAPSE) (normal >1.5 cm). Atria * The left atrial size is normal. * Right atrial size is normal. * The right atrium is mild to moderately dilated. * Injection of contrast documented an interatrial shunt. * Interatrial septal thickening is noted. * The atrial septum is aneurysmal. Mitral Valve * The mitral valve is grossly normal. * There is no mitral valve stenosis. * There is trace mitral regurgitation. Tricuspid Valve * The tricuspid valve is not well visualized, but is grossly normal. * There is no tricuspid stenosis. * There is trace tricuspid regurgitation. Aortic Valve * The aortic valve opens well. * No hemodynamically significant valvular aortic stenosis. * There is no significant aortic regurgitation. Pulmonic Valve * The pulmonary valve is inadequately visualized, but the Doppler data is adequate for interpretation. * There is no pulmonic valvular stenosis. * Trace pulmonic valvular regurgitation. Great Vessels * The aortic root and proximal ascending aorta are normal sized. * No Doppler or imaging evidence of an aortic coarctation. Pericardium/Pleural * There is no pericardial effusion. MMode 2D Measurements and Calculations IVSd 1.0 cm IVSs 1.4 cm LVIDd 4.4 cm LVIDs 3.0 cm LVPWd 10 cm LVPWs 1.3 cm IVS/LVPW 1.0 FS 32.2 % EDV(Teich) 86.7 ml ESV(Teich) 34.2 ml EF(Teich) 60.6 % EDV(cubed) 84.0 ml ESV(cubed) 26.2 ml EF(cubed) 68.8 % % IVS thick 33.5 % % LVPW thick 35.1 % LV mass(C)d 149.3 grams LV mass(C)dI 74.3 grams/m\S\2 LV mass(C)s 132.1 grams LV mass(C)sI 65.7 grams/m\S\2 CO(Teich) 4.0 l/min CI(Teich) 2.0 l/min/m\S\2 SV(Teich) 52.6 ml SI(Teich) 26.2 ml/m\S\2 CO(cubed) 4.4 l/min CI(cubed) 2.2 l/min/m\S\2 SV(cubed) 57.8 ml SI(cubed) 28.8 ml/m\S\2 Ao root diam 3.5 cm Ao root area 9.9 cm\S\2 ACS 1.8 cm LA dimension 3.6 cm LA/Ao 1.0 LVAd ap4 29.8 cm\S\2 LVLd ap4 8.9 cm EDV(MOD-sp4) 81.0 ml LVAs ap4 15.0 cm\S\2 LVLs ap4 6.7 cm ESV(MOD-sp4) 29.0 ml EF(MOD-sp4) 64.2 % LVAd ap2 25.3 cm\S\2 LVLd ap2 7.9 cm EDV(MOD-sp2) 69.0 ml LVAs ap2 13.3 cm\S\2 LVLs ap2 5.8 cm ESV(MOD-sp2) 26.0 ml EF(MOD-sp2) 62.3 % CO(MOD-sp4) 4.0 l/min CI(MOD-sp4) 2.0 l/min/m\S\2 SV(MOD-sp4) 52.0 ml SI(MOD-sp4) 25.9 ml/m\S\2 CO(MOD-sp2) 3.3 l/min CI(MOD-sp2) 1.6 l/min/m\S\2 SV(MOD-sp2) 43.0 ml SI(MOD-sp2) 21.4 ml/m\S\2 Doppler Measurements and Calculations MV E max carlos manuel 75.8 cm/sec MV A max carlos manuel 61.5 cm/sec MV E/A 1.2 MV P1/2t max carlos manuel 73.3 cm/sec MV P1/2t 100.7 msec MVA(P1/2t) 2.2 cm\S\2 MV dec slope 213.3 cm/sec\S\2 MV dec time 0.25 sec Ao V2 max 130.3 cm/sec Ao max PG 6.8 mmHg Ao max PG (full) 2.6 mmHg LV V1 max PG 4.2 mmHg LV V1 max 102.2 cm/sec PA V2 max 100.8 cm/sec PA max PG 4.1 mmHg
--- NOTE | 2016-12-14 11:37 | DIAGNOSTIC IMAGING REPORT ---
BILATERAL CAROTID DOPPLER STUDY HISTORY: Stenosis eval for ic stenosis COMPARISON: None. TECHNIQUE: Real-time, grayscale, and color Doppler sonography of the carotid arteries was performed. Imaging reviewed in the transverse and longitudinal planes. All measurements were calculated based on NASCET criteria. FINDINGS: Antegrade flow is seen in the bilateral vertebral arteries. The brachial pressures are hemodynamically similar. Minimal plaque formation bilaterally The peak systolic velocity within the right ICA is 66. The right systolic ratio is 0.7. The peak systolic velocity within the left ICA is 80. The left systolic ratio is 0.7. IMPRESSION: No hemodynamically significant stenosis seen within the carotid arteries. Minimal plaque formation bilaterally Electronically signed by: Luis Alfredo Ley M.D. 12/14/2016 11:35 AM Dictated Date/Time: 12/14/2016 11:32 AM
[2016-12-14] MEDS ORDERED: LORAZEPAM 1 MG TAB PO ONE ×2 (17:30→23:00)
[2016-12-14] MEDS: ACETAMINOPHEN 325 MG TAB PO PRN (20:31)
[2016-12-15] VITALS (16 sets, daily range): BP systolic 85–126; BP diastolic 55–99; PULSE 61–89; TEMP 36.6–37; O2SAT 92–98
[2016-12-15] MEDS ORDERED: GADAVIST IV PRN (02:30)
[2016-12-15 05:55] LABS: BASO % 0.7 %; BASO ABS # 0.05 K/uL (0-0.2); COMPLETE YES; EOS % 9.6 %; HEMATOCRIT 40.7 % (37-47); IG% 0.1 %; LYMPH % 41.3 %; LYMPH ABS # 3.05 K/uL (1.2-3.4); MEAN CELL VOLUME 92.7 fL (80-100); MEAN CORPUSCULAR HEMOGLOBIN 32.3 pg (25-34); MEAN CORPUSCULAR HGB CONC 34.9 g/dl (32-36); MEAN PLATELET VOLUME 10.2 fL (7.4-10.4); MONO % 7.6 %; NEUT % 40.7 %; PLATELET COUNT 217 K/uL (130-400); RED BLOOD COUNT 4.39 M/uL (4.2-5.4); WHITE BLOOD COUNT 7.39 K/uL (4.8-10.8)
[2016-12-15 06:09] LABS: BUN/CREATININE RATIO 21.9 (10-20); CALCIUM 8.8 mg/dl (8.5-10.1); CREATININE 0.71 mg/dl (0.60-1.20)
--- NOTE | 2016-12-15 07:04 | DIAGNOSTIC IMAGING REPORT ---
MR ANGIOGRAM OF THE BRAIN CLINICAL HISTORY: Strokelike symptoms. Fall. COMPARISON STUDY: MRI of the brain performed concurrently and 12/13/2016. TECHNIQUE: 3-D [id number] MR angiography of the intracranial circulation is performed. 3-D tumble views are created and assessed. IV contrast was not administered for this examination. The patient was scanned twice due to motion artifact. FINDINGS: The big [place] of [place] is developmentally complete. The internal carotid arteries are widely patent bilaterally, as are the anterior and middle cerebral arteries. The vertebrobasilar system and posterior cerebral arteries are widely patent. The left vertebral artery is dominant. There is no aneurysm, high-grade stenosis, or focal vessel cutoff seen throughout the intracranial circulation. The brain parenchyma is normal as visualized. IMPRESSION: Unremarkable MR angiogram of the brain. Electronically signed by: Oswald Mccormick M.D. 12/15/2016 7:01 AM Dictated Date/Time: 12/15/2016 6:58 AM
--- NOTE | 2016-12-15 07:25 | DIAGNOSTIC IMAGING REPORT ---
NECK MRA HISTORY: Headache. stroke TECHNIQUE: [id number] and gadolinium-enhanced MRA of the neck was performed both before and after the intravenous administration of contrast. All measurements were calculated based on NASCET criteria. COMPARISON STUDY: Carotid Doppler 12/14/2016. FINDINGS: The aortic arch and proximal great vessels are widely patent. There is no significant stenosis, occlusion, or dissection identified within the bilateral common carotid, internal carotid, or vertebral arteries. Hypoplastic right vertebral artery which is not well visualized proximally or distally. This can be due to its small size rather than stenosis. IMPRESSION: Hypoplastic right vertebral artery which is not well visualized proximally or distally. This could be due to its small size rather than stenosis. Otherwise, no significant stenosis, occlusion, or dissection identified within the carotid or vertebral arteries. Electronically signed by: Jayesh Erickson M.D. 12/15/2016 7:23 AM Dictated Date/Time: 12/15/2016 7:18 AM
[2016-12-15] MEDS ORDERED: CANNULA ONE ×2 (08:31)
[2016-12-15] MEDS ORDERED: BENZOCAIN/TETRACA/BUTAM SPRAY 200 APPLN/20 GM SPRY ONE (08:31)
[2016-12-15] MEDS ORDERED: MIDAZOLAM HCL 1 MG/ML 2ML VIAL ONE (08:32)
[2016-12-15] MEDS ORDERED: FENTANYL CITRATE INJ 50 MCG/1 ML 2 ML VIAL ONE (08:32)
--- NOTE | 2016-12-15 09:50 | Procedure Note ---
Pre-Mod Sedation Assessment General Date of Moderate Sedation: Dec 15, 2016. Vital Signs: Vital Signs Past 12 Hours Date Time Temp Pulse Resp B/P Pulse Ox O2 Delivery O2 Flow Rate FiO2 12/15/16 09:47 65 12 115/68 92 Room Air 12/15/16 09:37 64 12 103/70 93 Room Air 12/15/16 09:28 67 10 99/68 92 Room Air 12/15/16 09:19 63 9 101/63 98 Nasal Cannula 2.0 12/15/16 09:07 63 10 114/73 97 Nasal Cannula 2.0 12/15/16 09:05 89 15 126/99 97 Nasal Cannula 2.0 12/15/16 09:00 71 10 123/77 96 Nasal Cannula 2.0 12/15/16 08:55 61 12 104/73 97 Nasal Cannula 2.0 12/15/16 08:53 62 12 101/74 98 Nasal Cannula 2.0 12/15/16 07:58 36.7 68 16 99/64 92 Room Air 12/15/16 07:45 Room Air 12/15/16 07:32 36.6 62 16 113/69 94 Room Air 12/15/16 05:15 36.6 72 16 97/67 94 Room Air 12/15/16 04:00 Room Air 12/15/16 00:00 Room Air 12/14/16 23:26 36.9 66 18 93/59 95 Room Air Review Cardiovascular: regular rate, rhythm Pre-Sedation Airway Assessment Oral Cavity: WNL Able to Visualize Vocal Cords: No Short Thick Neck: No Hx of Sleep Apnea: No Smoking Status: Former Smoker Mallampati Classification: Class I ASA Classification: Class II Procedure Planning Contraindications-for Mod Sed: None Yes Notes The planned sedation has been discussed with the patient and consent obtained. I have identified the patient, determined the appropriateness of sedation and have assessed the patient immediately prior to the procedure. All medicine(s) and interventions are by my order.
--- NOTE | 2016-12-15 09:51 | Cardiology Procedure Brief Nt ---
Preliminary Cardiology Note Procedure Date Dec 15, 2016. Pre-Procedure Diagnosis PFO Post-Procedure Diagnosis PFO Procedure(s) Performed [place] [employer]ist [employer] Teacher(s) None Estimated Blood Loss None Medication(s) Fentanyl,versed Preliminary Findings Aneurysmal inter-atrial septum with PFO Recommendations Anticoagulation/antiplatelets as directed by neurology Specimens None Complication(s) None Disposition PCU
[2016-12-15] MEDS: ASPIRIN 81 MG ECTAB PO SCH (10:46)
[2016-12-15] MEDS: ACETAMINOPHEN 325 MG TAB PO PRN (10:47)
--- NOTE | 2016-12-15 10:51 | TEE ---
*NOTICE TO RECEIVING CONSTITUTION PARTY AGENCY This information is strictly Confidential and protected under [place] law. [place] law prohibits you from making any further disclosure of this information unless further disclosure is expressly permitted by the written consent of the person to whom it pertains or is authorized by law. A general authorization for the release of medical or other information is not sufficient for this purpose. Hospital accepts no responsibility if the information is made available to any other person, INCLUDING THE PATIENT. Interpretation Summary * Name: KOURTNEY BAEZA Study Date: 12/15/2016 08:32 AM BP: 101/72 mmHg * Patient Location: [facility]\S\N284\S\2 HR: 90 * : 1965 (M/d/yyyy) Gender: Female Height: 70 in * Age: 51 yrs Ethnicity: [place] Weight: 195 lb * Ordering Physician: Xena Bonilla * Performed By: Monique Greene RDCS * * Reason For Study: PFO or ASD * BSA: 2.1 m2 * -- Conclusions -- * The atrial septum is aneurysmal. * Injection of contrast documented an interatrial shunt. * Doppler reveals mild L-R shunting Procedure Details * The transesophageal portion of this study was personally supervised by the undersigned interpreting physician. * GA Probe #2 utilized for procedure. * The study was performed in Cardiopulmonary Department. * Time out was conducted by the physician, nurse, and darkroom technician with positive identification of patient and procedure. * Informed consent for Transesophageal Echocardiogram was obtained prior to the procedure. * An intravenous line was placed. A topical anesthetic agent was used for oropharangeal anesthesia. A bite block was inserted. * The patient's vital signs, including blood pressure, heart rate, pulse oximetry and cardiac rhythm were monitored throughout the procedure . * Fentanyl 75 mcg was administered for procedural sedation. * Midazolam 3 mg administered for sedation. * The posterior oropharynx was anesthetized using a topical anesthetic spray. A bite guard was inserted. * A multifrequency, multiplane transesopheageal echocardiographic endoscope was inserted and manipulated in the standard fashion to achieve multiplane views. * The transesophageal probe was passed without difficulty. * The usual views were obtained; basal, mid-esophageal, transgastric and aortic views. * The patient tolerated the procedure well without evidence of orophangeal or esophageal trauma. * Contrast injection with agitated saline was performed. * A 2D transesophageal echocardiogram with Doppler and color flow Doppler was performed. Left Ventricle * Left ventricular systolic function is normal. Atria * The left atrial size is normal. * Right atrial size is normal. * The atrial septum is aneurysmal. * Injection of contrast documented an interatrial shunt. * Doppler reveals mild L-R shunting Mitral Valve * The mitral valve anatomy is normal. * Significant mitral regurgitation is absent. Tricuspid Valve * The tricuspid valve anatomy is normal. * Significant tricuspid regurgitation is absent. Aortic Valve * The aortic valve is normal in structure and function. * The aortic valve is tricuspid. The leaflet thickness if normal. There is no aortic stenosis, and no significant insufficiency. Pulmonic Valve * The pulmonary valve is inadequately visualized, but the Doppler data is adequate for interpretation. * Trace pulmonic valvular regurgitation. Great Vessels * The aortic root is normal size. Pericardium * There is no pericardial effusion.
--- NOTE | 2016-12-15 14:01 | Procedure Note ---
Post-Mod Sedation Assessment General Date of Moderate Sedation Dec 15, 2016. Vital Signs: Vital Signs Past 12 Hours Date Time Temp Pulse Resp B/P Pulse Ox O2 Delivery O2 Flow Rate FiO2 12/15/16 12:00 Room Air 12/15/16 11:44 37.0 72 16 93/58 97 Room Air 12/15/16 10:07 66 92/57 97 Room Air 12/15/16 09:47 65 12 115/68 92 Room Air 12/15/16 09:37 64 12 103/70 93 Room Air 12/15/16 09:28 67 10 99/68 92 Room Air 12/15/16 09:19 63 9 101/63 98 Nasal Cannula 2.0 12/15/16 09:07 63 10 114/73 97 Nasal Cannula 2.0 12/15/16 09:05 89 15 126/99 97 Nasal Cannula 2.0 12/15/16 09:00 71 10 123/77 96 Nasal Cannula 2.0 12/15/16 08:55 61 12 104/73 97 Nasal Cannula 2.0 12/15/16 08:53 62 12 101/74 98 Nasal Cannula 2.0 12/15/16 07:58 36.7 68 16 99/64 92 Room Air 12/15/16 07:45 Room Air 12/15/16 07:32 36.6 62 16 113/69 94 Room Air 12/15/16 05:15 36.6 72 16 97/67 94 Room Air 12/15/16 04:00 Room Air Review - Discharge Criteria Vital Signs Stable: Yes Alert/Oriented/Conversant: Yes Returned to Baseline Mental St: Yes Nausea Absent/Minimal: Yes Pain/Discomfort/Absent/Minimal: Yes Normal/Baseline Respirations: Yes Active Bleeding?: N/A Pt Received D/C Instructions: Yes Prescriptions Given: None Specific Proced. D/C Criteria Distal Pulses Present (Cardiac: N/A Groin site assessed-Card Cath: N/A Voided Prior To Discharge: N/A Discharged Patients Adult Escort/Transportation: N/A
--- NOTE | 2016-12-15 16:22 | Neurology Progress Notes ---
Neurology Progress Note Date of Service Dec 15, 2016. Subjective I was not able to evaluate the patient clinically this morning b/c she was off the floor for testing. Objective Date Time Temp Pulse Resp B/P Pulse Ox O2 Delivery O2 Flow Rate FiO2 12/15/16 15:09 36.8 73 16 85/55 95 Room Air 12/15/16 12:00 Room Air 12/15/16 11:44 37.0 72 16 93/58 97 Room Air 12/15/16 10:07 66 92/57 97 Room Air 12/15/16 09:47 65 12 115/68 92 Room Air 12/15/16 09:37 64 12 103/70 93 Room Air 12/15/16 09:28 67 10 99/68 92 Room Air 12/15/16 09:19 63 9 101/63 98 Nasal Cannula 2.0 12/15/16 09:07 63 10 114/73 97 Nasal Cannula 2.0 12/15/16 09:05 89 15 126/99 97 Nasal Cannula 2.0 12/15/16 09:00 71 10 123/77 96 Nasal Cannula 2.0 12/15/16 08:55 61 12 104/73 97 Nasal Cannula 2.0 12/15/16 08:53 62 12 101/74 98 Nasal Cannula 2.0 12/15/16 07:58 36.7 68 16 99/64 92 Room Air 12/15/16 07:45 Room Air 12/15/16 07:32 36.6 62 16 113/69 94 Room Air 12/15/16 05:15 36.6 72 16 97/67 94 Room Air 12/15/16 04:00 Room Air 12/15/16 00:00 Room Air 12/14/16 23:26 36.9 66 18 93/59 95 Room Air 12/14/16 20:00 Room Air 12/14/16 19:50 36.9 72 18 106/69 96 Room Air 12/14/16 16:00 97 Room Air Last 24 Hours Test 12/14/16 16:09 12/15/16 05:35 Bedside Glucose 98 mg/dl White Blood Count 7.39 K/uL Red Blood Count 4.39 M/uL Hemoglobin 14.2 g/dL Hematocrit 40.7 % Mean Corpuscular Volume 92.7 fL Mean Corpuscular Hemoglobin 32.3 pg Mean Corpuscular Hemoglobin Concent 34.9 g/dl Platelet Count 217 K/uL Mean Platelet Volume 10.2 fL Neutrophils (%) (Auto) 40.7 % Lymphocytes (%) (Auto) 41.3 % Monocytes (%) (Auto) 7.6 % Eosinophils (%) (Auto) 9.6 % Basophils (%) (Auto) 0.7 % Neutrophils # (Auto) 3.01 K/uL Lymphocytes # (Auto) 3.05 K/uL Monocytes # (Auto) 0.56 K/uL Eosinophils # (Auto) 0.71 K/uL Basophils # (Auto) 0.05 K/uL RDW Standard Deviation 43.9 fL RDW Coefficient of Variation 12.8 % Immature Granulocyte % (Auto) 0.1 % Immature Granulocyte # (Auto) 0.01 K/uL Sodium Level 143 mmol/L Potassium Level 4.0 mmol/L Chloride Level 108 mmol/L Carbon Dioxide Level 29 mmol/L Anion Gap 6.0 mmol/L Blood Urea Nitrogen 16 mg/dl Creatinine 0.71 mg/dl Est Creatinine Clear Calc Drug Dose 113.4 ml/min Estimated GFR () 114.3 Estimated GFR (Non- 98.6 BUN/Creatinine Ratio 21.9 Random Glucose 97 mg/dl Calcium Level 8.8 mg/dl Imaging: I reviewed the recently completed MRA of the head and neck. There does not appear to be evidence of a significant stenotic or other vascular lesion. The right vertebral artery is of diminished caliber and is not likely clinically significant. I reviewed the results of the recently completed GA as well which reveal an aneurysmal atrial septum and left to right shunting, normal atrial size. (The previous TTE had suggested right to left shunting and mild to moderate right atrial dilatation.) Current Inpatient Medications Medications (Trade) Dose Ordered Sig/Irene Route Start Time Stop Time Status Last Admin Dose Admin Gadobutrol (Gadavist) 9 mmol UD PRN IV 12/13/16 15:30 12/17/16 15:29 Aspirin (Ecotrin Tab) 81 mg QAM PO 12/14/16 09:00 01/13/17 08:59 12/15/16 10:46 81 MG Miscellaneous Information (Pharmacist Discharge Med Rec Consult) 1 ea UD PRN N/A 12/13/16 17:30 01/12/17 17:29 Acetaminophen (Tylenol Tab) 650 mg Q4H PRN PO 12/13/16 17:30 01/12/17 17:29 12/15/16 10:47 650 MG Al Hydrox/Mg Hydrox/Simethicone (Maalox Max Susp) 15 ml Q4H PRN PO 12/13/16 17:30 01/12/17 17:29 Magnesium Hydroxide (Milk Of Magnesia Susp) 30 ml Q12H PRN PO 12/13/16 17:30 01/12/17 17:29 12/15/16 10:46 30 ML Ondansetron HCl (Zofran Inj) 4 mg Q6H PRN IV 12/13/16 17:30 01/12/17 17:29 Polyethylene (Miralax Powder Packet) 17 gm DAILY PRN PO 12/13/16 17:30 01/12/17 17:29 Morphine Sulfate (MoRPHine SULFATE INJ) 1 mg Q3H PRN IV 12/13/16 17:45 12/27/16 17:44 Acetaminophen/ Hydrocodone Bitart (Altha 5/325 Tab) 1 tab Q4H PRN PO 12/13/16 17:45 12/27/16 17:44 12/14/16 21:17 1 TAB Miscellaneous (Iv Fluids Completed) 1 ea PRN PRN N/A 12/13/16 18:15 12/13/17 18:14 Diphenhydramine HCl (Benadryl Cap) 25 mg Q6 PRN PO 12/14/16 13:45 01/13/17 13:44 12/15/16 10:46 25 MG Gadobutrol (Gadavist) 8 mmol UD PRN IV 12/15/16 02:30 12/19/16 02:29 Impression 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 I am not certain of the significance of the apparent change in shunting direction between these two studies. Does the shunt direction change with Valsalva in her case? The aneurysmal septum could potentially still be a nidus for thrombus/emboli in either scenario. Plan Discussed with hospitalist QUETA. Would recommend a cardiology consult for further guidance on management, including potential need for anticoagulation vs antiplatelet therapy.
[2016-12-15] MEDS ORDERED: ASPI81TA28 PO (16:47)
--- NOTE | 2016-12-15 17:17 | Discharge Instructions ---
Discharge Instructions Date of Service Dec 15, 2016. Admission Reason for Admission: Cerebrovascular Accident (Cva) Discharge Discharge Diagnosis / Problem: Mechanical fall, Old stroke Discharge Goals Goal(s): Decrease discomfort, Improve function, Diagnostic testing, Screening Activity Recommendations Activity Limitations: resume your previous activity Lifting Limitations: gradually increase as tolerated Exercise/Sports Limitations: as tolerated May Resume Sexual Activity: when tolerated Shower/Bathe: no limitations Driving or Machine Use: until follow up with PCP . Instructions / Follow-Up Instructions / Follow-Up Dear Mrs. Davis, You were admitted to the hospital after a mechanical fall, resulting in trauma to your head and concussion. There was concern about a TIA which is stroke like symptoms for a short period of time that can result in dizziness/falls etc. You had a series of imaging here that revealed an old stroke. So you had further testing to identify the source of the stroke, with concerns about it coming from the heart (called cardioembolic). 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 This puts you at slightly more increased risk of strokes. As a result, we are recommending that you take a daily baby aspirin. We also recommend cessation of smoking to reduce your risk of strokes. You may experience post-concussive symptoms; headaches, memory changes, anxiety , feeling off balance. We would recommend avoiding strenuous activities for 1-2 weeks. We also recommend avoiding driving until clearance by PCP. However, if you have any interval development of neurological symptoms such as weakness of your legs/hands, vision changes, bowel/bladder incontinence; please seek medical attention. You have been scheduled for a follow up appointment with Dr. Allred with the [facility] in [place] ([address], [address]) for 12/16/2016 at 1:10 pm If you experience any further symptoms, especially stroke - like symptoms, please go to the nearest ER. Thank you. Current Hospital Diet Patient's current hospital diet: Regular Diet Discharge Diet Recommended Diet: Regular Diet Pending Studies Studies pending at discharge: yes List of pending studies: Laboratory Results Hemoglobin A1c Test 12/13/16 13:40 Range/Units Estimated Average Glucose 105 mg/dl Hemoglobin A1c 5.3 4.5-5.6 % Lipid Panel Test 4/11/17 06:36 Range/Units Triglycerides Level 114 0-150 mg/dl Cholesterol Level 189 0-200 mg/dl HDL Cholesterol 63 mg/dl Cholesterol/HDL Ratio 3.0 LDL Cholesterol, Calculated 103 mg/dl Medical Emergencies . Who to Call and When: Medical Emergencies: If at any time you feel your situation is an emergency, please call 911 immediately. . Non-Emergent Contact Non-Emergency issues call your: Primary Care Provider . . "Provider Documentation" section prepared by Breana David. VTE Core Measure Inpt VTE Proph given/why not?: James Garvey, SCD's
--- NOTE | 2016-12-15 21:00 | Discharge Summary ---
Discharge Summary Date of Service Dec 15, 2016. (Breana Allred MD) Discharge Summary Admission Date: Dec 14, 2016 at 15:33 Discharge Date: Dec 15, 2016 Discharge Disposition: Home Principal Diagnosis: Mechanical Fall, Facial trauma Problems/Secondary Diagnoses: Interatrial aneurysm Interatrial Shunt Immunizations: History of Tetanus Vaccine?: Yes History of Pneumococcal: No History of Hepatitis B Vaccine: No Procedures: MAXILLOFACIAL CT WITHOUT CONTRAST CLINICAL HISTORY: Fell, trauma to face COMPARISON STUDY: None. TECHNIQUE: A maxillofacial CT was performed without IV contrast. Coronal and sagittal reformats were viewed. FINDINGS: No acute facial fracture is identified. Alignment of the temporomandibular joints is anatomic. Orbits are unremarkable. Globes are intact. Mastoid air cells are clear. Cervical spine and head CT's will be reported separately. There is moderate rightward deviation of the nasal septum. This is chronic. IMPRESSION: No acute facial fracture. HEAD CT NONCONTRAST CT DOSE: 638.56 mGycm HISTORY: Fell, trauma to face TECHNIQUE: Multiaxial CT images of the head were performed without the use of intravenous contrast. Automated exposure control was utilized for this study. Comparison: None. Findings: The paranasal sinuses and mastoid air cells are clear. The calvarium and skull base are intact. The ventricles and sulci are within normal limits. There is no mass, hematoma, midline shift. Small wedge-shaped hypodense focus within the left frontal lobe. This is consistent with a subacute to chronic infarct. Impression: No acute intracranial abnormality. Small subacute to chronic infarct within the left frontal lobe. CERVICAL SPINE CT CT DOSE: 490.45 mGycm HISTORY: Neck pain. Fell, trauma to face TECHNIQUE: Multiaxial CT images of the cervical spine were performed and reformatted in the sagittal and coronal plane without the use of contrast. COMPARISON: None. FINDINGS: No fractures. Prevertebral soft tissues and the C1-C2 interval are intact. No pneumothorax. Mild levoscoliosis. Moderate degenerative disease at C5-C6 and C6-C7. 1 mm of anterolisthesis of C4 and C5 which is likely due to long-standing degenerative change. IMPRESSION: No fractures within the cervical spine. MRI OF THE BRAIN COMBO CLINICAL HISTORY: Headache. Abnormal CT scan. COMPARISON STUDY: CT of the brain dated 12/13/2016. MRI of the brain dated 02/25/2007. TECHNIQUE: MRI of the brain was performed utilizing various T1 and T2-weighted sequences in the axial, sagittal, and coronal planes. Contrast-enhanced sequences were acquired following the administration of 9 cc of Gadavist. FINDINGS: Brain parenchyma: There is a small focus of left frontal encephalomalacia consistent with remote infarct. There is no hemorrhage or mass effect. There is no restricted diffusion to suggest acute ischemia. No enhancing mass lesion is identified on the postcontrast images. Brothers-white matter differentiation is preserved. No extra-axial fluid collection is seen. The cerebellar tonsils are normal in configuration. Ventricles, sulci, and cisterns: Normal in configuration. Pituitary and sella: Unremarkable. Intracranial vasculature: Normal flow voids are maintained at the skull base. Orbits: The bony orbits are grossly intact. Orbital contents are normal in appearance. Sinuses and mastoids: Clear. Calvarium: Unremarkable. Cervical cord: Partially visualized cervical spinal cord is normal in morphology and signal intensity. IMPRESSION: 1. There is no hemorrhage, enhancing mass, or evidence of acute ischemia. 2. A small focus of encephalomalacia is again seen in the left frontal lobe. This corresponds to the CT abnormality and likely represents a remote infarct. A precautionary 3 month follow-up MRI is recommended for reassessment. BILATERAL CAROTID DOPPLER STUDY HISTORY: Stenosis eval for ic stenosis COMPARISON: None. TECHNIQUE: Real-time, grayscale, and color Doppler sonography of the carotid arteries was performed. Imaging reviewed in the transverse and longitudinal planes. All measurements were calculated based on NASCET criteria. FINDINGS: Antegrade flow is seen in the bilateral vertebral arteries. The brachial pressures are hemodynamically similar. Minimal plaque formation bilaterally The peak systolic velocity within the right ICA is 66. The right systolic ratio is 0.7. The peak systolic velocity within the left ICA is 80. The left systolic ratio is 0.7. IMPRESSION: No hemodynamically significant stenosis seen within the carotid arteries. Minimal plaque formation bilaterally MR ANGIOGRAM OF THE BRAIN CLINICAL HISTORY: Strokelike symptoms. Fall. COMPARISON STUDY: MRI of the brain performed concurrently and 12/13/2016. TECHNIQUE: 3-D [id number] MR angiography of the intracranial circulation is performed. 3-D tumble views are created and assessed. IV contrast was not administered for this examination. The patient was scanned twice due to motion artifact. FINDINGS: The [place] of [place] is developmentally complete. The internal carotid arteries are widely patent bilaterally, as are the anterior and middle cerebral arteries. The vertebrobasilar system and posterior cerebral arteries are widely patent. The left vertebral artery is dominant. There is no aneurysm, high-grade stenosis, or focal vessel cutoff seen throughout the intracranial circulation. The brain parenchyma is normal as visualized. IMPRESSION: Unremarkable MR angiogram of the brain. NECK MRA HISTORY: Headache. stroke TECHNIQUE: Gauj-jo-aridph and gadolinium-enhanced MRA of the neck was performed both before and after the intravenous administration of contrast. All measurements were calculated based on NASCET criteria. COMPARISON STUDY: Carotid Doppler 12/14/2016. FINDINGS: The aortic arch and proximal great vessels are widely patent. There is no significant stenosis, occlusion, or dissection identified within the bilateral common carotid, internal carotid, or vertebral arteries. Hypoplastic right vertebral artery which is not well visualized proximally or distally. This can be due to its small size rather than stenosis. IMPRESSION: Hypoplastic right vertebral artery which is not well visualized proximally or distally. This could be due to its small size rather than stenosis. Otherwise, no significant stenosis, occlusion, or dissection identified within the carotid or vertebral arteries. ECHO: * -- Conclusions -- * 1. Normal LV size and wall thickness. * 2. Normal LV function. LVEF 60-65%. No regional wall motion abnormalities. * 3. Normal RV size and function. * 4. No significant valvular pathology. * 5. Right atrium is mild to moderately dilated. * 6. Interatrial septum is thickened and appears aneurysmal. * 7. Saline contrast study is technically limited but appears positive for right to left shunt. * 8. No prior studies for comparison. * 9. Consider GA to further evaluate interatrial septum. GA: * -- Conclusions -- * The atrial septum is aneurysmal. * Injection of contrast documented an interatrial shunt. * Doppler reveals mild L-R shunting Consultations: Neurology (Breana Allred MD) Problems/Secondary Diagnoses: Patent foramen ovale Current smoker Migraines with aura Diverticulosis (Amada Bella MD) Medication Reconciliation New Medications: Aspirin (Aspirin Ec) 81 Mg Tab 81 MG PO DAILY for 30 Days Discharge Exam The patient is a 51 y/o F with a history of migraines with aura, HLD, Diverticulosis and a reported "hole in her heart" as a child, who presented to the ED after a fall. She was walking down stairs and attempting to put out a cigarette when she took a few missteps and landed face forward on the ground. She was found by her friend with superficial abrasions around her right orbit and face. She has no history of syncope or seizure disorder. She remembers the incident clearly but probably lost consciousness after having hit her head on the floor. She denied any chest pain or shortness of breath prior to the fall. In the ED, she had a series of imaging (listed above). Head CT revealed a subacute to chronic infarct with in the left frontal lobe. Brain MRI also showed the same. 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 She was admitted for a TIA/ Stroke work up. Her Echo was concerning for an interatrial shunt, therefore a GA was planned. The GA revealed an interatrial aneurysm as well as a shunt. Neurology was consulted and they recommended aspirin as her previous stroke was likely cardioembolic. We also discussed the case with cardiology and they did not feel that she needed anticoagulation. She was not a candidate for statin as her lipid profile was within normal limits. She otherwise remained asymptomatic and neurologically intact. Post concussive symptoms and instructions were given to the patient. She has follow up Scheduled with [facility] medicine. At the time of discharge, hypercoagulable work-up was pending. Review of Systems: Constitutional: No chills, No fatigue, No fever, No sweats, No weakness Eyes: No worsening of vision ENT: No hearing loss, No unusual epistaxis Respiratory: No cough, No dyspnea at rest, No dyspnea on exertion, No shortness of breath, No sputum, No wheezing Cardiovascular: No chest pain Abdomen: No diarrhea, No nausea, No pain, No vomiting Musculoskeletal: No joint pain, No muscle pain Genitourinary - Female: No dysuria, No urinary frequency, No urinary urgency Neurologic: No balance problems, No memory loss, No numbness/tingling, No paralysis, No vertigo, No weakness Physical Exam: General Appearance: no apparent distress, + pertinent finding (Superficial bruising / ecchymoses around the right periorbital and forehead) Eyes: PERRL, EOMI ENT: hearing grossly normal Neck: supple, no adenopathy, thyroid normal Respiratory/Chest: lungs clear, normal breath sounds, no respiratory distress, no accessory muscle use Cardiovascular: regular rate, rhythm, no edema Abdomen / GI: normal bowel sounds, non tender, soft Extremities: no calf tenderness, normal capillary refill, no pedal edema, normal range of motion Neurologic/Psychiatric: trailer mechanic II-XII nml as tested, no motor/sensory deficits , alert, normal mood/affect, normal reflexes, oriented x 3 (Breana Allred MD) Hospital Course Total Time Spent: Greater than 30 minutes This includes examination of the patient, discharge planning, medication reconciliation, and communication with other providers. (Breana Allred MD) Discharge Instructions Please refer to the electronic Patient Visit Report (Discharge Instructions) for additional information. (Breana Allred MD) Follow-Up [facility] (Breana Allred MD) Additional Copies To Breana Allred MD Reviewed: Pt Seen/Exam by Me (Amada Bella MD) History Resident Physician Supervision Note: I interviewed and examined the patient. Discussed with Dr. Allred and agree with findings and plan as documented in the note. Any exceptions or clarifications are listed here: Patient admitted after presyncopal episode after smoking a cigarette and bending over to put it out caused her to hit her head on the ground and possibly lose consciousness. She was incidentally noted to have a chronic left frontal infarct on head CT and confirmed with encephalomalacia on MRI. GA showed an interatrial aneurysmal PFO with some [id number] shunt. She had no events on telemetry, ECG was normal, laboratory workup was normal, MRA of the head and neck only showed hypoplasia of the right vertebral artery. She had no signs or symptoms of DVT. She has localized pain around the site of her facial trauma with swelling and bruising and superficial abrasions in the right periorbital and facial region. She denied lightheadedness or dizziness, denied any generalized headache, denies photophobia, denied mental fogginess. Denied nausea or vomiting Vitals and telemetry reviewed No acute distress, alert awake oriented 3 Right for head and periorbital region as well as right maxillary and zygomatic arch with mild edema and ecchymosis with a few superficial abrasions not actively bleeding. Regular rate and rhythm no murmurs gallops rubs Clear to auscultation bilaterally, no wheezes crackles or rhonchi, breathing unlabored Abdomen soft nontender nondistended positive bowel sounds Extremities no edema, no calf tenderness Neurology-cranial nerves intact grossly, full strength throughout upper and lower extremities 51-year-old female here with presyncopal episode leading to head trauma possible loss of consciousness from mechanical fall, with incidental finding of chronic left frontal infarct and interatrial septal aneurysm with PFO. -Discussed case with neurology and cardiology, recommended starting aspirin. Her lipid panel is excellent and she is not a candidate for statin at this time. It is thought that she has cryptogenic stroke. There is possibility that she had a paradoxical embolism. Her hypercoagulable workup is pending at the time of discharge and should be followed up by her memory care physician back in [place]. This has been stressed to her and she will follow-up when she returns home. For her concussion, as recommended that she have complete physical mental rest as well as not to drive. She will be seen by the family service worker in the clinic tomorrow afternoon for checkup on her concussion symptoms. Is also strongly recommended that she quit smoking which she is determined to do. Documented By: Amada Bella (Amada Bella MD)
--- NOTE | 2016-12-16 13:16 | EDITING REQUIRED CODING QUERY ---
CODING QUERY To promote full compliance with coding requirements relating to patient care, provider participation is requested in all cases of team foreman uncertainty. Please assist us with the question(s) below: Coding Question(s): Patient admitted with possible Stroke. Discharge Summary States : " Head CT revealed subacute-chronic infarct in left frontal lobe. Neuro consult stated that his probably was cardioembolic in origin. There is a possibility she had a paradoxic embolism.". Please check below the phrase that describes the Stroke on admission. Thanks for your help! Arben Joseph [facility] Physician's Response(s): Patient had an acute Stroke, Not otherwise specified - Present on Admission. Patient had an acute embolic stroke Present on admission ___x Patient has a chronic stroke ,Present on Admission Other/ Please document Principal Diagnosis: "_that condition established after study, to be chiefly responsible for occasioning the admission of the patient to the hospital for care." Co-Existing Principal Diagnosis: "_when two or more diagnoses equally meet the criteria for principal diagnosis as determined by the circumstances of admission, diagnostic work up, and/or therapy provided, and the Alphabetic Index, Tabular List, or another coding guideline does not provide sequencing direction, any one of the diagnoses may be sequenced first." "When the physician has documented what appears to be a current diagnosis in the body of the record, but has not included the diagnosis in the final diagnostic statement, the physician should be asked whether the diagnosis should be added." (Source Coding [facility] 2 QTR90. p3-4)
[2016-12-18 11:33] LABS: ANTITHROMBINIII ACTIVITY** 110 % activity (80-120); B2 GLYCOPROTEIN IGA <9 SAU (<=20); B2 GLYCOPROTEIN IGG <9 SGU (<=20); B2 GLYCOPROTEIN IGM <9 SMU (<=20); LUPUS ANTICOAGULANT** TC36573X Negative (Negative); PROTEIN C ACTIVITY** TC 1777X 142 % (70-180); PROTEIN S ACT(FUNCT)**1779X 82 % (60-140)
[2016-12-22 10:42] LABS: ISTAT CREATININE 0.6 mg/dl (0.6-1.3); ISTAT HEMOGLOBIN 15.6 g/dl (12.0-16.0); ISTAT IONIZED CALCIUM 1.25 mmol/l (1.12-1.32)
== END 2016-12-15 19:02 | disposition home or self-care (01) | DRG 56 ==
LOC: ENRESERVDT → ENRESERVTM → C.EDB 11:08 → C.MED 19:15 → OBSVTOIN 12-14 15:33
PROVIDERS: ADMIT Internal Medicine; ATTEND Family Medicine
DX: I69.898 Other sequelae of other cerebrovascular disease (principal); I63.9 Cerebral infarction, unspecified; Q21.1 Atrial septal defect; F17.210 Nicotine dependence, cigarettes, uncomplicated; E78.5 Hyperlipidemia, unspecified; S00.83XA Contusion of other part of head, initial encounter; R55 Syncope and collapse; S00.11XA Contusion of right eyelid and periocular area, initial encounter; K57.90 Diverticulosis of intestine, part unspecified, without perforation or abscess without bleeding; G93.89 Other specified disorders of brain; Y92.199 Unspecified place in other specified residential institution as the place of occurrence of the external cause; Y93.01 Activity, walking, marching and hiking; W17.89XA Other fall from one level to another, initial encounter